=== PATIENT | female | born 1960 | race Caucasian/White ===

== ENCOUNTER 2018-06-18 10:52 | Emergency (ER) | payer OTHER ==
[~2018-06-18] VITALS: Ht 157.5 cm; Wt 54.4 kg
--- NOTE | ~2018-06-18 | EKG ---
[address] [place] [address] ELECTROCARDIOGRAM REPORT Name: SMITA FUENTES Room #: [id number] Admission: 06/18/18 Attend Phys: Discharge: Date of : 58 Report #: [id number] THIS REPORT FOR: //name// [facility] ED Test Date: 2018-06-18 Test Time: 11:24:22 Pat Name: SMITA FUENTES Department: Room: Gender: F Teamsite Developer: LEONID : 1960 Requested By: Ellen Quiñones Order Number: [id number] MD: Earnest Alva Measurements Intervals [place] Rate: 99 P: 44 CA: 134 QRS: 15 QRSD: 88 T: 64 QT: 349 QTc: 448 Interpretive Statements Sinus rhythm No significant abnormality No previous ECG available for comparison Electronically Signed On 06-18-2018 17:16:27 CDT by Earnest Alva [email or web address] <ELECTRONICALLY SIGNED> By: Earnest Alva MD, [facility] 06/18/18 1716 [id number] Earnest Alva MD, FACC /EPI
[~2018-06-18 10:52] MED LIST: DIFLUCAN150 MG PO; FOSINOPRIL 10 M10 M1 PO; GLUCOPHAGE XR500 MG PO; LANTUS100 UNIT/M SUBQ; LEVOTHYROXINE0.05 MG PO; MACROBID 100 M100 M1 PO; MONISTAT 3 COM1 EACH VG; NOVOLOG100 UNIT/M SUBQ; SIMVASTATIN40 MG PO; ZOLOFT50 MG PO
[2018-06-18] MEDS ORDERED: SYNTHROID75 MCG PO (11:01)
[2018-06-18] MEDS ORDERED: CRESTOR40 MG PO ×2 (11:02→14:49)
[2018-06-18] MEDS ORDERED: ZETIA10 MG PO (11:03)
[2018-06-18] MEDS ORDERED: FARXIGA5 MG PO (11:03)
[2018-06-18] MEDS ORDERED: TYLENOL EXTRA500 MG PO (11:05)
[2018-06-18 12:44] LABS: ABSOLUTE NEUTROPHILS 12.3 thou/uL (1.4-8.2); BASOPHILS 0.2 % (0.0-2.0); HEMATOCRIT 44.8 % (37.0-47.0); HEMOGLOBIN 14.5 gm/dL (12.0-15.0); LYMPHOCYTES 5.5 % (24.0-44.0); MCHC 32.5 g/dL (28.0-37.0); MCV 89.3 fL (80.0-100.0); MONOCYTES 2.5 % (1.0-8.0); PLATELET COUNT 280 thou/uL (150-400); POLYS 91.8 % (36.0-66.0); RBC 5.02 mil/uL (4.20-5.00); RDW 14.1 % (10.5-14.5); WBC 13.4 thou/uL (4.0-11.0)
[2018-06-18 13:01] LABS: CALCIUM 10.6 mg/dL (8.5-10.1); CREATININE 1.2 mg/dL (0.6-1.0); POTASSIUM 4.8 mmol/L (3.5-5.1)
[2018-06-18 13:03] LABS: ALBUMIN 2.3 g/dL (3.4-5.0); TOTAL BILIRUBIN 0.5 mg/dL (<0.1-1.0); TOTAL PROTEIN 9.4 g/dL (6.4-8.2)
[2018-06-18 13:20] LABS: URINE BLOOD 1+ (Negative); URINE CLARITY CLOUDY; URINE COLOR YELLOW; URINE GLUCOSE-RANDOM* 3+ (Negative); URINE KETONES 3+ (Negative); URINE LEUKOCYTES-REFLEX TRACE (Negative); URINE NITRITE-REFLEX NEGATIVE (Negative); URINE PROTEIN (DIPSTICK) TRACE (Negative); URINE SPECIFIC GRAVITY 1.015 (1.005-1.035); URINE UROBILINOGEN 0.2 E.U./dl (0.2-1.0)
[2018-06-18 13:21] LABS: ICTOTEST (BILI CONFIRMATORY) Negative (Negative); URINE BILIRUBIN NEGATIVE (Negative)
[2018-06-18 13:29] LABS: AMORPHOUS URATES Few /LPF (None Seen); BACTERIA-REFLEX 1-9 Few /HPF (None Seen); CASTS None Seen /LPF (None Seen); SQUAMOUS 0-3 Few /LPF (0-3); URINE RBC 0-2 Rare /HPF (0-2)
[2018-06-18] MEDS ORDERED: FENOFIBRATE160 MG PO (14:32)
[2018-06-18] MEDS ORDERED: ATORVASTATIN CA40 MG PO (14:33)
[2018-06-18 17:20] LABS: CALCIUM 9.2 mg/dL (8.5-10.1); POTASSIUM 3.8 mmol/L (3.5-5.1)
[2018-06-18 18:51] VITALS: BP 133/65
== END 2018-06-18 18:52 | disposition short-term general hospital (02) ==
LOC: ER 10:52
PROVIDERS: Nurse Practitioner Family; Student in an Organized Health Care Education/Training Program
DX: E11.10 Type 2 diabetes mellitus with ketoacidosis without coma (principal); G89.29 Other chronic pain; M54.5 Low back pain; N20.0 Calculus of kidney; N39.0 Urinary tract infection, site not specified; I10 Essential (primary) hypertension; E78.5 Hyperlipidemia, unspecified; Z79.4 Long term (current) use of insulin; Z88.0 Allergy status to penicillin; Z88.1 Allergy status to other antibiotic agents; W18.30XA Fall on same level, unspecified, initial encounter; Y93.89 Activity, other specified; Y92.009 Unspecified place in unspecified non-institutional (private) residence as the place of occurrence of the external cause; Y99.8 Other external cause status